=== PATIENT | female | born 1960 | race Caucasian/White ===

== ENCOUNTER → 2017-03-28 | Outpatient (CLI) | payer BC ==
--- NOTE | 2017-04-01 07:43 | MM ---
Reason for exam: screening (asymptomatic). Last mammogram was performed 1 year and 7 months ago. History: Patient is postmenopausal. Ultrasound-guided core biopsy of the left breast, October 11, 2003. Physical Findings: A clinical breast exam by your physician is recommended on an annual basis and results should be correlated with mammographic findings. MG Screening Mammo w CAD Bilateral CC and MLO view(s) were taken. Prior study comparison: August 30, 2015, bilateral MG diagnostic mammo w CAD [facility]. January 05, 2015, right breast MG work up mamm w CAD RT. There are scattered fibroglandular densities. No significant changes when compared with prior studies. ASSESSMENT: Negative, BI-RAD 1 RECOMMENDATION: Routine screening mammogram of both breasts in 1 year.
== END | disposition home or self-care (01) ==
LOC: RADMAMWWP 13:15
PROVIDERS: ATTEND Family Medicine
DX: Z12.31 Encounter for screening mammogram for malignant neoplasm of breast (principal); Z80.3 Family history of malignant neoplasm of breast

== ENCOUNTER → 2018-03-31 | Outpatient (CLI) | payer BC ==
--- NOTE | 2018-03-31 12:41 | XR ---
EXAMINATION TYPE: XR KUB DATE OF EXAM: 03/31/2018 12:31 PM CLINICAL HISTORY: Left-sided abdominal pain per patient. Kidney stones per order. TECHNIQUE: Single supine KUB image of the abdomen is obtained. COMPARISON: None. FINDINGS: There are 2-3 small calculi left kidney mid to lower pole level with a curvilinear calculus measuring up to 5 mm long axis just below left 12th rib. There are 1-2 mid pole right renal calculi near right 11th rib. Calcifications in pelvis are presumed phleboliths. Cholecystectomy clips are present. There is vascular calcification in the pelvis. There is mild to mo derate axial joint space loss in both hips. There is mild multilevel spurring in the spine. There is overall nonobstructive bowel gas pattern. Impression: Small renal calculi bilaterally.
== END | disposition home or self-care (01) ==
LOC: RADXRMAIN 12:13
PROVIDERS: ATTEND Urology
DX: N20.0 Calculus of kidney (principal)
CPT/HCPCS: 74018

== ENCOUNTER 2018-04-14 13:08 | Day surgery (SDC) | payer BC ==
[2018-04-10 11:05] VITALS: BMI 29.9
[~2018-04-14 13:08] MED LIST: DEXAMETHASONE SOD PHOSPHATE 10 MG/ML 1 ML VIAL IV ONE; LACTATED RINGERS 1,000 ML IV SCH; LIDOCAINE 1% 20 ML VIAL (10MG/ML) FOR IV START INTRADERMA PRN; ONDANSETRON 4 MG/2 ML VIAL IVP ONE; Pre Op ABX Message 1 EACH MISC MISCELLANE ONE
--- NOTE | 2018-04-14 13:48 | XR ---
Abdomen HISTORY: Left renal stone, kidney stones Frontal view of the abdomen correlated to prior exam 03/31/2018 There are punctate calcifications overlying the lower pole left kidney measuring only approximately 2 to 3 mm as on prior exam. Punctate calcifications also overlying the right kidney, at least 2 calcif ications suspected. Surgical clips present in the right upper quadrant. There are again noted calcifi cations within the pelvis as on prior exam. Lung bases not included on the exam. No evident bowel obs truction or pneumoperitoneum. IMPRESSION: Bilateral nephrolithiasis.
[2018-04-14 13:52] VITALS: RESP 16; TEMP 98.3
[2018-04-14] MEDS ORDERED: LIDOCAINE 1% INJ 10MG/ML (20 ML MDV) ONE (14:19)
[2018-04-14] MEDS ORDERED: MIDAZOLAM 2 MG/2 ML VIAL ONE (14:19)
[2018-04-14] MEDS ORDERED: fentaNYL (PF) 50 MCG/ML 2 ML AMP ONE (14:19)
[2018-04-14] MEDS ORDERED: PROPOFOL 10 MG/ML 20 ML VIAL IV ONE (14:19)
--- NOTE | 2018-04-14 14:43 | P.OP ---
Date of Procedure: 04/14/18 Preoperative Diagnosis: Left renal stones Postoperative Diagnosis: Same Procedure(s) Performed: Portal shockwave lithotripsy left 1500 shocks and energy level IV Anesthesia: MAC Surgeon: Jamshid Glez Pathology: none sent Condition: stable Disposition: PACU Indications for Procedure: Patient is a 57-year-old female who recently passed a stone from her left ureter. She has stones in the left side of her kidney that she wishes to have treated before they pass. Description of Procedure: Patient brought to the operating suite and given IV sedation. Frozen lithotripsy table in supine position. Stone was seen in 2 of fluoroscopy. 15 Vahid in the level IV and posterior. The stone appears to fracture nicely. The procedure the patient awake and returned recovery room good condition she' ll be discharged home upon recovery.
[2018-04-14 15:30] VITALS: BP 126/80; PULSE 58
== END 2018-04-14 13:46 | disposition home or self-care (01) ==
LOC: ORWHC2ENDO 13:08
PROVIDERS: ATTEND Urology
DX: N20.0 Calculus of kidney (principal); Z84.1 Family history of disorders of kidney and ureter; I10 Essential (primary) hypertension; K21.9 Gastro-esophageal reflux disease without esophagitis; M19.90 Unspecified osteoarthritis, unspecified site; F17.210 Nicotine dependence, cigarettes, uncomplicated; Z79.899 Other long term (current) drug therapy; Z78.0 Asymptomatic menopausal state; Z98.51 Tubal ligation status
CPT/HCPCS: 74018; 50590; J2250; J2001; J3010; J2704

== ENCOUNTER → 2018-04-22 | Outpatient (CLI) | payer BC ==
--- NOTE | 2018-04-22 11:24 | XR ---
EXAMINATION TYPE: XR KUB DATE OF EXAM: 04/22/2018 HISTORY: 04/14/2018 Comparison: patient has a left side lithotrophsy done one week ago Single KUB is submitted for interpretation. Findings: Right renal calculi: None Visualized. Right ureteral calculi: None Visualized. Left renal calculi: Poorly visible sub 2 mm calculi overlying the mid to lower pole left kidney. No additional calculi seen with certainty. Left ureteral calculi: None Visualized. Pelvic calcifications: None Visualized. Bowel gas pattern is unremarkable. No free air. No mass effects. IMPRESSION: 1. Poorly visible sub 2 mm calculi overlying the mid to lower pole left kidney.
== END | disposition home or self-care (01) ==
LOC: RADXRMAIN 10:39
PROVIDERS: ATTEND Urology
DX: N20.0 Calculus of kidney (principal)
CPT/HCPCS: 74018

== ENCOUNTER → 2018-05-09 | Outpatient (CLI) | payer BC ==
--- NOTE | 2018-05-09 13:56 | XR ---
EXAMINATION TYPE: XR KUB DATE OF EXAM: 05/09/2018 CLINICAL HISTORY: Left-sided lithotripsy. Renal calculi. TECHNIQUE: Single frontal abdominal radiograph was obtained supine. COMPARISON: None. FINDINGS: There are two residual approximately 2 mm left renal calculi appearing to be located within the lower pole. Multiple phleboliths are noted within the pelvis appearing similar to the prior with overall similar appearing atherosclerosis. No new calculi along the course of the ureter seen. Proba ble punctate right upper pole or mid pole 2 mm renal calculus is also noted. Cholecystectomy clips ar e present. Moderate degenerative changes of the lumbosacral junction are noted. Scattered gas is see n in non-distended small bowel loops. Gas and fecal material is seen in non-distended colon. IMPRESSION: Punctate bilateral renal calculi appearing similar to the prior. No new calculi are seen within the pelvis or along the courses of the ureters.
== END | disposition home or self-care (01) ==
LOC: RADXRMAIN 12:19
PROVIDERS: ATTEND Urology
DX: N20.0 Calculus of kidney (principal)
CPT/HCPCS: 74018

== ENCOUNTER → 2018-05-20 | Outpatient (CLI) | payer BC ==
--- NOTE | 2018-05-21 13:53 | MM ---
Reason for exam: screening (asymptomatic). Last mammogram was performed 1 year and 2 months ago. History: Patient is postmenopausal. Ultrasound-guided core biopsy of the left breast, October 11, 2003. Physical Findings: A clinical breast exam by your physician is recommended on an annual basis and results should be correlated with mammographic findings. MG Screening Mammo w CAD Bilateral CC and MLO view(s) were taken. Prior study comparison: March 28, 2017, bilateral MG screening mammo w CAD. August 30, 2015, bilateral MG diagnostic mammo w CAD [facility]. There are scattered fibroglandular densities. There is no discrete abnormality. ASSESSMENT: Negative, BI-RAD 1 RECOMMENDATION: Routine screening mammogram of both breasts in 1 year.
== END | disposition home or self-care (01) ==
LOC: RADMAMWWP 15:24
PROVIDERS: ATTEND Family Medicine
DX: Z12.31 Encounter for screening mammogram for malignant neoplasm of breast (principal)
CPT/HCPCS: 77067

== ENCOUNTER → 2019-08-19 | Outpatient (CLI) | payer BC ==
--- NOTE | 2019-08-21 13:25 | MM ---
Reason for exam: screening (asymptomatic). Last mammogram was performed 1 year and 3 months ago. History: Patient is postmenopausal. Ultrasound-guided core biopsy of the left breast, October 11, 2003. Physical Findings: A clinical breast exam by your physician is recommended on an annual basis and results should be correlated with mammographic findings. MG Screening Mammo w CAD Bilateral CC and MLO view(s) were taken. Prior study comparison: May 20, 2018, bilateral MG screening mammo w CAD. March 28, 2017, bilateral MG screening mammo w CAD. There are scattered fibroglandular densities. No significant changes when compared with prior studies. ASSESSMENT: Benign, BI-RAD 2 RECOMMENDATION: Routine screening mammogram of both breasts in 1 year.
== END | disposition home or self-care (01) ==
LOC: RADMAMWWP 13:31
PROVIDERS: ATTEND Family Medicine
DX: Z12.31 Encounter for screening mammogram for malignant neoplasm of breast (principal)
CPT/HCPCS: 77067

== ENCOUNTER → 2021-02-22 | Outpatient (CLI) | payer BC ==
--- NOTE | 2021-02-24 11:10 | MM ---
Reason for exam: screening (asymptomatic). Last mammogram was performed 1 year and 6 months ago. History: Patient is postmenopausal. Ultrasound-guided core biopsy of the left breast, October 11, 2003. Physical Findings: A clinical breast exam by your physician is recommended on an annual basis and results should be correlated with mammographic findings. MG Screening Mammo w CAD Bilateral CC and MLO view(s) were taken. Prior study comparison: August 19, 2019, bilateral MG screening mammo w CAD. May 20, 2018, bilateral MG screening mammo w CAD. There are scattered fibroglandular densities. Focal asymmetry on left MLO view. This finding is changed when compared with previous exams. ASSESSMENT: Incomplete: need additional imaging evaluation, BI-RAD 0 RECOMMENDATION: Special view mammogram of the left breast. If lesion persists on supplemental views, image directed ultrasound is recommended. [facility] will attempt to contact patient to return for supplemental views and ultrasound if indicated.
== END | disposition home or self-care (01) ==
LOC: RADMAMWWP 15:11
PROVIDERS: ATTEND Family Medicine
DX: Z12.31 Encounter for screening mammogram for malignant neoplasm of breast (principal); Z78.0 Asymptomatic menopausal state
CPT/HCPCS: 77067

== ENCOUNTER → 2021-03-01 | Outpatient (CLI) | payer BC ==
--- NOTE | 2021-03-01 11:32 | MM ---
Reason for exam: additional evaluation requested from abnormal screening. Last mammogram was performed less than 1 month ago. History: Patient is postmenopausal. Ultrasound-guided core biopsy of the left breast, October 11, 2003. Took hormonal contraceptives for 10 years. Physical Findings: Nurse did not find any significant physical abnormalities on exam. MG Work Up Mamm w CAD LT Spot compression MLO and LM view(s) were taken of the left breast. Prior study comparison: February 22, 2021, bilateral MG screening mammo w CAD. August 19, 2019, bilateral MG screening mammo w CAD. The breast tissue is heterogeneously dense. This may lower the sensitivity of mammography. There is no discrete abnormality including area of concern. These results were verbally communicated with the patient and result sheet given to the patient on 03/01/21. ASSESSMENT: Probably benign, BI-RAD 3 RECOMMENDATION: Follow-up diagnostic mammogram of the left breast in 6 months.
== END | disposition home or self-care (01) ==
LOC: RADMAMWWP 08:36
PROVIDERS: ATTEND Family Medicine
DX: Z78.0 Asymptomatic menopausal state (principal)
CPT/HCPCS: 77065

== ENCOUNTER → 2021-03-16 | Outpatient (CLI) | payer BC ==
--- NOTE | 2021-03-16 12:45 | XR ---
EXAMINATION TYPE: XR KUB DATE OF EXAM: 03/16/2021 12:33 PM CLINICAL HISTORY: Left-sided kidney stone. TECHNIQUE: Two supine KUB images of the abdomen are obtained. COMPARISON: CT abdomen and pelvis May 09, 2018 FINDINGS: There are approximately 3-4 small calculi mid to lower pole level left kidney roughly infer ior L2 level measuring up to 5 mm in size on current study, a few new calculi suspected from 2018. Th ere is stable approximately 4 mm calculus right kidney midpole level near the 12th rib. Scattered bilateral pelvic phleboliths redemonstrated. Pelvic vascular calcification again seen. Mild to moderate multilevel spurring in the lumbar spine redemonstrated. Overall nonobstructive bowel gas pattern. IMPRESSION: Small bilateral renal calculi redemonstrated as detailed above.
== END | disposition home or self-care (01) ==
LOC: RADXRMAIN 12:22
PROVIDERS: ATTEND Urology
DX: N20.0 Calculus of kidney (principal)
CPT/HCPCS: 74018

== ENCOUNTER → 2021-03-29 | Outpatient (CLI) | payer BC ==
--- NOTE | 2021-03-30 07:16 | CT ---
EXAMINATION TYPE: CT abdomen pelvis wo con DATE OF EXAM: 03/29/2021 HISTORY: LT side pain, hx renal stones CT DLP: 276.50 mGycm. Automated Exposure Control for Dose Reduction was Utilized. TECHNIQUE: CT scan of the abdomen and pelvis is performed without oral or IV contrast. COMPARISON: Abdominal x-ray March 16, 2021 FINDINGS: Within the limitations of a non-contrast study, the following observations are made. LUNG BASES: No significant abnormality is appreciated. LIVER/GB: Cholecystectomy clips. PANCREAS: No significant abnormality is seen. SPLEEN: No significant abnormality is seen. ADRENALS: No significant abnormality is seen. KIDNEYS: Left kidney does have approximately 6-8 scattered small calculi measuring up to 4 mm in size with 3-4 adjacent calculi lower pole left kidney. Right kidney has roughly 3-4 small calculi measuri ng up to 4 mm in size. No hydronephrosis or obstructing ureter calculi seen bilaterally. No intralumi nal calculi in the bladder. BOWEL: No significant abnormality is seen. GENITAL ORGANS: Uterus surgically absent or markedly atrophic. Scattered bilateral pelvic phleboliths . LYMPH NODES: No greater than 1cm abdominal or pelvic lymph nodes are appreciated. OSSEOUS STRUCTURES: No significant abnormality is seen. OTHER: Moderate calcified plaque of the aorta extends into branch vessels. IMPRESSION: Small left greater than right bilateral nonobstructing renal calculi. No hydronephrosis o r obstructing ureter calculi seen bilaterally.
== END | disposition home or self-care (01) ==
LOC: RADCTMAIN 15:21
PROVIDERS: ATTEND Urology
DX: N20.0 Calculus of kidney (principal)
CPT/HCPCS: 74176

== ENCOUNTER → 2021-09-01 | Outpatient (CLI) | payer BC ==
--- NOTE | 2021-09-01 12:08 | MM ---
Reason for exam: follow-up at short interval from prior study. Last mammogram was performed 6 months ago. History: Patient is postmenopausal. Ultrasound-guided core biopsy of the left breast, October 11, 2003. Took hormonal contraceptives for 10 years. Physical Findings: Nurse did not find any significant physical abnormalities on exam. MG Diagnostic Mammo LT w CAD CC and MLO view(s) were taken of the left breast. Prior study comparison: March 01, 2021, left breast MG work up mamm w CAD LT. February 22, 2021, bilateral MG screening mammo w CAD. The breast tissue is heterogeneously dense. This may lower the sensitivity of mammography. Benign appearing calcifications in the left breast. No significant new findings when compared with previous films. These results were verbally communicated with the patient and result sheet given to the patient on 09/01/21. ASSESSMENT: Benign, BI-RAD 2 RECOMMENDATION: Follow-up diagnostic mammogram of both breasts in 6 months. Back on schedule.
== END | disposition home or self-care (01) ==
LOC: RADMAMWWP 10:55
PROVIDERS: ATTEND Family Medicine
DX: R92.1 Mammographic calcification found on diagnostic imaging of breast (principal); Z78.0 Asymptomatic menopausal state
CPT/HCPCS: 77065

== ENCOUNTER → 2023-03-04 | Outpatient (CLI) | payer BC ==
--- NOTE | 2023-03-04 15:15 | BD ---
EXAMINATION TYPE: Axial Bone Density DATE OF EXAM: 03/04/2023 CLINICAL HISTORY: 62 years old Female. ICD-10 CODE: Z13.820 OSTEOPOROSIS Height: 58 Weight: 118.1 FRAX RISK QUESTIONS: Alcohol (3 or more units per day): no Family History (Parent hip fracture): no Glucocorticoids (More than 3mos): no (Ex: prednisone, prednisolone, methylprednisolone, dexamethasone, and hydrocortisone). History of Fracture in Adulthood: no Secondary Osteoporosis: 1. Type 1 Diabetes: no 2. Hyperthyroidism: no 3. Menopause before 45: yes 4. Malnutrition: no 5. Chronic liver disease: no Rheumatoid Arthritis: no Current Tobacco Use: yes RISK FACTORS HISTORY OF: Surgery to Spine/Hip(right/left)/Wrist (right/left): no Family History of Osteoporosis: no Active: yes Diet low in dairy products/other sources of calcium: no Postmenopausal woman: yes Lost more than 2 inches in height since high school: no MEDICATIONS: Additional History: EXAM MEASUREMENTS: Bone mineral densitometry was performed using the [employer]. Bone mineral density as measured about the Lumbar spine is: ----- L1-L4(G/cm2): 0.939 T Score Values are as follows: ----- L1: -1.5 ----- L2: -2.1 ----- L3: -2.2 ----- L4: -2.3 ----- L1-L4: -2.0 Z Score Values are as follows: ----- L1: 0.1 ----- L2: -0.5 ----- L3: -0.6 ----- L4: -0.7 ----- L1-L4: -0.4 Bone mineral density : baseline Bone mineral density about the R hip (g/cm2): 0.847 Bone mineral density about the L hip (g/cm2): 0.856 T Score values are as follows: -----R Neck: -1.9 -----L Neck: -1.7 -----R Total: -1.3 -----L Total: -1.2 Z Score values are as follows: -----R Neck: -0.4 -----L Neck: -0.2 -----R Total: -0.1 -----L Total: 0.0 Bone mineral density : baseline FRAX%s: The graph provided illustrates a 9.3% chance for a major osteoporotic fx and a 1.1% chance fo r the hips probability for fx in 10 years time. IMPRESSION: Osteopenia (T Score between -2.5 and -1). There is slightly increased risk of fracture and the patient may be considered for treatment. Re-Screen 2-5 years. NOTE: T-SCORE=SD OF THE YOUNG ADULT MEAN.
--- NOTE | 2023-03-05 09:49 | MM ---
Reason for Exam: Screening (asymptomatic). Last mammogram was performed 2 year(s) and 1 month(s) ago. Patient History: Menarche at age 14. First Full-Term at age 31. Left ovary removed at age 46. Hysterectomy at age 46. Postmenopausal. Patient used Hormonal Contraceptives for 10 years. 10/11/2003, Ultrasound-Guided Core Biopsy on the Left side. Risk Values: Gloria 5 year model risk: 1.9%. NCI Lifetime model risk: 9.5%. Prior Study Comparison: 02/22/2021 Bilateral Screening Mammogram, [facility]. 03/01/2021 Left Diagnostic Mammogram, [facility]. 09/01/2021 Left Diagnostic Mammogram, [facility]. Tissue Density: The breast tissue is heterogeneously dense. This may lower the sensitivity of mammography. Findings: Analyzed By CAD. There is no suspicious group of microcalcifications or new suspicious mass in either breast. Overall Assessment: Negative, BI-RAD 1 Management: Screening Mammogram of both breasts in 1 year. A clinical breast exam by your physician is recommended on an annual basis and results should be correlated with mammographic findings. Electronically signed and approved by: Stew Che M.D. Radiologis
== END | disposition home or self-care (01) ==
LOC: RADMAMWWP 14:25
PROVIDERS: ATTEND Family Medicine
DX: Z12.31 Encounter for screening mammogram for malignant neoplasm of breast (principal); Z13.820 Encounter for screening for osteoporosis; M85.89 Other specified disorders of bone density and structure, multiple sites; M54.42 Lumbago with sciatica, left side; Z78.0 Asymptomatic menopausal state
CPT/HCPCS: 77063; 77067; 77080

== ENCOUNTER → 2023-10-04 | Outpatient (CLI) | payer BC ==
--- NOTE | 2023-10-04 15:36 | US ---
EXAMINATION TYPE: US extremity nonvasc mass RT DATE OF EXAM: 10/04/2023 COMPARISON: NONE CLINICAL INDICATION: Female, 62 years old with history of M25.561 PAIN IN RIGHT KNEE; posterior right knee pain x a few months. Physician suspects lin cyst, patient states tenderness upon physical exa m TECHNIQUE: Several grayscale and color Doppler images acquired at posterior fossa FINDINGS/IMPRESSION: No solid or cystic lesion identified. No fluid collection demonstrated.
== END | disposition home or self-care (01) ==
LOC: RADUSWWP 15:01
PROVIDERS: ATTEND Family Medicine
DX: M25.561 Pain in right knee (principal)